=== PATIENT | male | born 1950 | race Caucasian/White ===

== ENCOUNTER → 2020-10-15 13:43 | Outpatient (BNVA) | payer OTHER, SELFPAY | PROVIDERS: Referring Provider Neuromusculoskeletal Medicine & OMM; Visit Provider Psychiatry & Neurology Neurology | DX: G25.0 Essential tremor (principal) | CPT/HCPCS: 99204 ==

== ENCOUNTER → 2020-12-01 07:54 | Outpatient (BNVA) | payer MEDICARE, OTHER, SELFPAY | PROVIDERS: Visit Provider Psychiatry & Neurology Neurology | DX: G25.0 Essential tremor (principal) | CPT/HCPCS: 99442 ==

== ENCOUNTER 2024-03-01 07:00 | Emergency (ER) | payer MEDICARE, SELFPAY ==
--- NOTE | 2024-03-01 | DI.CT_ITS ---
Exam(s) CT ABDOMEN PELVIS W CLINICAL HISTORY: TECHNIQUE: Imaging Protocol: Axial computed tomography images with coronal and sagittal reformatted images were created and reviewed. CONTRAST MATERIAL: Intravenous: Omnipaque 350 Contrast volume:100 mL Oral: No COMPARISON: No exams were available for comparison FINDINGS: ABDOMEN: Lung Bases: Coronary artery calcifications and/or stents are present. Liver: Normal density. No measurable mass. Portal, Superior Mesenteric, and Splenic Veins: Unremarkable. Gallbladder and Biliary Tract: No radiodense calculus or dilation. Pancreas: Normal density, no abnormal calcifications or inflammatory process. Spleen: Normal. Adrenals: No masses seen. Kidneys: Normal size, contour and axis. No radiodense stones or obstructive uropathy. There are tiny hypodensities seen in the kidneys. They are too small for further characterization but likely reflec t small cysts. No follow-up is recommended. There is a 1.2 x 0.6 cm fat attenuation lesion in the m idpole of the left kidney most suggestive of a benign lesion such as a angiomyolipoma. Abdominal Aorta: Abdominal portion non-dilated. Atherosclerotic calcification is present. Bowel: No obstruction or bowel wall thickening. There is no evidence of appendicitis. Peritoneal Cavity: No ascites, collection or mesenteric inflammatory response. No free air. Lymph Nodes: Within normal limits. Bones: Within normal limits for the patient's age. Soft Tissues: Unremarkable. PELVIS: Bladder: The urinary bladder is incompletely distended but grossly unremarkable. Reproductive Organs: Status post hysterectomy. Lymph Nodes: Within normal limits. Bones: Within normal limits for the patient's age. IMPRESSION: 1. No acute abdominal or pelvic process. 2. No evidence of nephrolithiasis or hydronephrosis. RADIATION DOSE DELIVERED: Total DLP DATA REPOSITORY: All CT scans at this facility are submitted to the National Radiology Data Registry (NRDR) Dose Index Registry (DIR) with the [employer] ([employer]). RADIATION OPTIMIZATION: All CT scans at this facility use at least one of these dose optimization te chniques: automated exposure control; mA and/or kV adjustment per patient size (includes targeted exa ms where dose is matched to clinical indication); or iterative reconstruction.
--- NOTE | 2024-03-01 11:12 | W.EDPROG ---
Date of service: 03/01/24 Time of Service: 11:12 Medical Decision Making Patient visit occurred during EMR downtime. Please see paper chart for details. Quality:SDOH Health Related Social Needs: No Data to Display Discharge Plan Disposition Patient Disposition: Home Condition: Stable Discharge Details Clinical Impression: Back pain Primary Care Provider: Unknown,Unknown ED Provider: Lakisha Peck Home Meds and New Rx's Prescriptions: No Action aspirin 81 mg tablet,delayed release (DR/EC) 81 mg PO DAILY atorvastatin 20 mg tablet 20 mg PO DAILY Eliquis 5 mg tablet 5 mg PO BID lisinopril 5 mg tablet 5 mg PO DAILY nitroglycerin 0.4 mg tablet, sublingual 0.4 mg sublingual Q5M PRN Rx Instructions: do not exceed 3 doses per episode prednisone 5 mg tablet 5 mg PO DAILY Discharge Instructions Additional Instructions: discharged with lidoderm patches and robaxin
[2024-03-01 11:21] LABS: ALT 89 U/L (16-63); AST 48 U/L (15-37); Alkaline Phosphatase 71 U/L (46-116); Anion Gap 6.8 mmol/L (3-11); BUN 19 mg/dL (7-18); Bilirubin, Total 0.8 mg/dL (0.2-1.0); CO2 31.2 mmol/L (21.0-32.0); CREATININE 1.1 mg/dL (0.70-1.30); Calcium 8.9 mg/dL (8.5-10.1); Chloride 102 mmol/L (98-107); Estimated GFR 70.88 (mL/min/1.73m2); Glucose 106 mg/dL (74-106); Potassium 3.8 mmol/L (3.5-5.1); Sodium 140 mmol/L (136-145); Total Protein 7.3 g/dL (6.4-8.2)
[2024-03-01 11:23] LABS: HCT 50.3 % (40.0-50.0); HGB 16.8 g/dL (13.5-17.5); Lactate 1.3 mmol/L (0.6-1.4); MCH 32.1 pg (27.0-33.0); MCV 96 fL (80-95); RBC 5.24 10^6/uL (4.36-5.78); WBC 10.78 10^3/uL (4.4-10.8)
[2024-03-01 11:24] LABS: Abs Immature Grans 0.07 10^3/uL (0.0-0.06); Absolute Basophil Count 0.07 10^3/uL (0.0-0.2); Absolute Eosinophil Count 0.21 10^3/uL (0.0-0.7); Absolute Lymphocyte Count 1.55 10^3/uL (1.2-3.4); Absolute Monocyte Count 0.89 10^3/uL (0.1-0.8); Absolute Neutrophil Count 7.99 10^3/uL (1.2-6.7); Basophils % 0.6 %; Eosinophils % 1.9 %; Immature Grans % 0.6 %; Lymphocytes % 14.4 %; MCHC 33.4 % (32.0-36.0); MPV 8.8 fL (8.0-11.0); Monocytes % 8.3 %; Neutrophils % 74.2 %; Platelet Count 344 10^3/uL (130-400); RDW 13.4 % (11.8-14.1); RDW-SD 48.2 fL
[2024-03-01] MEDS: Omnipaque 350 MG/ML 100 ML BTL IJ (11:27)
[2024-03-01] MEDS: Normal Saline - Diluent 50 ML VIAL IJ (11:28)
[2024-03-01 12:31] LABS: Bilirubin Negative (Negative); Blood Negative (Negative); Clarity Clear (Clear); Glucose Negative (Negative); Ketones Negative (Negative); Leukocyte Esterase Negative (Negative); Nitrite Negative (Negative); Urobilinogen 0.2 mg/dL (Up to 0.2)
== END 2024-03-01 11:14 | disposition home or self-care (01) ==
PROVIDERS: Emergency Provider Emergency Medicine
DX: M54.50 Low back pain, unspecified (principal); I10 Essential (primary) hypertension; E78.5 Hyperlipidemia, unspecified; I25.10 Atherosclerotic heart disease of native coronary artery without angina pectoris; I48.91 Unspecified atrial fibrillation; M35.3 Polymyalgia rheumatica; Z79.01 Long term (current) use of anticoagulants; Z79.82 Long term (current) use of aspirin
CPT/HCPCS: 00123; 80053; 99285; 74177; 81003; 83605; 85025; 99284; J3490

== ENCOUNTER 2024-04-25 08:20 | Outpatient (CLI) | payer MEDICARE, SELFPAY ==
--- NOTE | 2024-04-25 08:15 | RT.EKG_ITS ---
APPROVED REPORT Exam: Resting ECG Reason for Exam: afib Patient Location: O HR:138 bpm ECG Measurements Heart Rate 138 AXIS MA 174 P 8 QRSd 97 QRS 0 QT 360 T 247 QTc 546 Conclusion Pacemaker spikes or artifacts...timing Indeterminate axis...QRS axis indeterminate...Q >30mS, T neg, inf-lat leads
== END 2024-04-25 08:21 | disposition home or self-care (01) ==
LOC: DI.CARD 08:21
PROVIDERS: PCP Family Medicine; Visit Provider Internal Medicine Cardiovascular Disease
DX: I25.10 Atherosclerotic heart disease of native coronary artery without angina pectoris
CPT/HCPCS: 93010

== ENCOUNTER → 2024-04-25 08:50 | Outpatient (BNVA) | payer MEDICARE, SELFPAY | PROVIDERS: PCP Family Medicine; Referring Provider Family Medicine; Visit Provider Internal Medicine Cardiovascular Disease | DX: Z95.810 Presence of automatic (implantable) cardiac defibrillator (principal); I47.20 Ventricular tachycardia, unspecified; I25.10 Atherosclerotic heart disease of native coronary artery without angina pectoris | CPT/HCPCS: 93005; 93284 ==

== ENCOUNTER → 2024-06-04 11:16 | Outpatient (BNVA) | payer MEDICARE, SELFPAY | PROVIDERS: Visit Provider Internal Medicine Cardiovascular Disease | DX: I48.0 Paroxysmal atrial fibrillation (principal); I48.20 Chronic atrial fibrillation, unspecified; I44.7 Left bundle-branch block, unspecified | CPT/HCPCS: 93005; 99214 ==

== ENCOUNTER 2024-06-04 11:23 | Outpatient (CLI) | payer MEDICARE, SELFPAY ==
--- NOTE | 2024-06-04 11:15 | RT.EKG_ITS ---
APPROVED REPORT Exam: Resting ECG Reason for Exam: hx cardiac cath, AFIB, ICD Patient Location: O HR:63 bpm ECG Measurements Heart Rate 63 AXIS RI 58 P 93 QRSd 108 QRS -27 QT 499 T 23 QTc 511 Conclusion Atrial-sensed ventricular-paced rhythm...ventricular pacing tracks p-waves No further analysis attempted due to paced rhythm
== END 2024-06-04 11:24 | disposition home or self-care (01) ==
LOC: DI.CARD 11:24
PROVIDERS: Visit Provider Internal Medicine Cardiovascular Disease
DX: I48.91 Unspecified atrial fibrillation; Z95.810 Presence of automatic (implantable) cardiac defibrillator
CPT/HCPCS: 93010

== ENCOUNTER 2024-10-24 08:15 | Outpatient (CLI) | payer MEDICARE, SELFPAY | END 2024-10-24 08:16 | disposition home or self-care (01) | LOC: DI.CARD 08:19 | PROVIDERS: Visit Provider Internal Medicine Cardiovascular Disease | CPT/HCPCS: 93010 ==

== ENCOUNTER 2024-11-21 08:51 | Outpatient (CLI) | payer MEDICARE, SELFPAY ==
--- NOTE | 2024-11-21 08:45 | RT.EKG_ITS ---
APPROVED REPORT Exam: Resting ECG Reason for Exam: CAD, afib Patient Location: O HR:69 bpm ECG Measurements Heart Rate 69 AXIS IN 220 P 74 QRSd 155 QRS 0 QT 455 T 48 QTc 488 Conclusion Atrial-sensed ventricular-paced rhythm...ventricular pacing tracks p-waves No further analysis attempted due to paced rhythm
== END 2024-11-21 08:52 | disposition home or self-care (01) ==
PROVIDERS: Visit Provider Internal Medicine Cardiovascular Disease
DX: I25.10 Atherosclerotic heart disease of native coronary artery without angina pectoris (principal); I48.0 Paroxysmal atrial fibrillation; Z51.81 Encounter for therapeutic drug level monitoring
CPT/HCPCS: 93010

== ENCOUNTER → 2024-11-21 09:38 | Outpatient (BNVA) | payer MEDICARE, SELFPAY | PROVIDERS: Visit Provider Internal Medicine Cardiovascular Disease | DX: Z95.810 Presence of automatic (implantable) cardiac defibrillator (principal) | CPT/HCPCS: 93005; 93284 ==

== ENCOUNTER → 2025-08-21 12:39 | Outpatient (BNVA) | payer MEDICARE, SELFPAY | PROVIDERS: Visit Provider Internal Medicine Cardiovascular Disease | DX: I25.10 Atherosclerotic heart disease of native coronary artery without angina pectoris (principal); Z45.02 Encounter for adjustment and management of automatic implantable cardiac defibrillator | CPT/HCPCS: 93284 ==